=== PATIENT | male | born 1980 | race African-American/Black ===

== ENCOUNTER 2025-05-22 09:10 | Outpatient (CLI) | payer OTHER | END 2025-05-22 09:11 | disposition home or self-care (01) | LOC: CSHSLEEP 09:10 | PROVIDERS: ATTEND Family Medicine | DX: G47.33 Obstructive sleep apnea (adult) (pediatric) (principal); R51.9 Headache, unspecified; F32.A Depression, unspecified; F41.9 Anxiety disorder, unspecified; E66.9 Obesity, unspecified; Z68.42 Body mass index [BMI] 45.0-49.9, adult; R06.83 Snoring; G47.00 Insomnia, unspecified; I10 Essential (primary) hypertension | CPT/HCPCS: 95800 ==